=== PATIENT | male | born 1985 | race Caucasian/White ===

== ENCOUNTER 2023-08-08 06:05 | Day surgery (SDC) | payer OTHER, SELFPAY ==
[2023-08-08] VITALS (8 sets, daily range): BP systolic 116–140; BP diastolic 80–97; BMI 18.4
[2023-08-08] MEDS: NORMOSOL-R 1000 IV (14:38)
== END 2023-08-08 18:50 | disposition home or self-care (01) ==
LOC: SDS 06:05
PROVIDERS: ATTENDING PHYSICIAN Surgery
DX: N47.1 Phimosis (principal); N48.29 Other inflammatory disorders of penis
CPT/HCPCS: 54161; 88304